=== PATIENT | male | born 1970 | race Caucasian/White ===

== ENCOUNTER 2019-11-16 09:08 | Outpatient (CLI) | payer OTHER, SELFPAY ==
--- NOTE | 2019-11-16 09:48 | US_ITS ---
WS: [id number] BILATERAL DIGITAL DIAGNOSTIC MAMMOGRAM MAMMOGRAPHY WITH CAD CLINICAL INFORMATION: GYNCOMASTIA HYPERTROPHY OF BREAST TECHNIQUE: Bilateral CC, MLO, and ML views. FINDINGS: Scattered fibroglandular densities bilaterally. Palpable marker left breast. Slightly asymmetric fibr oglandular tissue left areola compared to the right. No focal mammographic mass. Ultrasound is pendin g. ULTRASOUND BREAST LEFT TECHNIQUE: Ultrasound left breast focused area of concern. CLINICAL INFORMATION: GYNCOMASTIA HYPERTROPHY OF BREAST COMPARISON: None. FINDINGS: Ultrasound left breast at the nipple. Shadowing fibroglandular tissue deep to the nipple consistent w ith gynecomastia. No focal lesions to target for biopsy. Comparison right nipple is normal in appeara nce. US/US breast BI limited* [id number] IMPRESSION: BI-RADS: 2-Benign FOLLOW UP: See Report Additional management of the palpable abnormality should be based on clinical g rounds.
--- NOTE | 2019-11-16 09:53 | MM_ITS ---
WS: [id number] BILATERAL DIGITAL DIAGNOSTIC MAMMOGRAM MAMMOGRAPHY WITH CAD CLINICAL INFORMATION: GYNCOMASTIA HYPERTROPHY OF BREAST TECHNIQUE: Bilateral CC, MLO, and ML views. FINDINGS: Scattered fibroglandular densities bilaterally. Palpable marker left breast. Slightly asymmetric fibr oglandular tissue left areola compared to the right. No focal mammographic mass. Ultrasound is pendin g. ULTRASOUND BREAST LEFT TECHNIQUE: Ultrasound left breast focused area of concern. CLINICAL INFORMATION: GYNCOMASTIA HYPERTROPHY OF BREAST COMPARISON: None. FINDINGS: Ultrasound left breast at the nipple. Shadowing fibroglandular tissue deep to the nipple consistent w ith gynecomastia. No focal lesions to target for biopsy. Comparison right nipple is normal in appeara [place]ce. MM/[place] [id number] IMPRESSION: BI-RADS: 2-Benign FOLLOW UP: See Report Additional management of the palpable abnormality should be based on clinical g rounds.
== END 2019-11-16 09:09 | disposition home or self-care (01) ==
LOC: RADSHAW 09:11
PROVIDERS: Family Provider Registered Nurse; PCP Registered Nurse; Visit Provider Registered Nurse
DX: N62 Hypertrophy of breast (principal)
CPT/HCPCS: 76642; 77066

== ENCOUNTER → 2019-12-17 15:30 | Outpatient (BNVA) | payer OTHER, SELFPAY | PROVIDERS: Family Provider Registered Nurse; PCP Registered Nurse; Visit Provider Registered Nurse | DX: N62 Hypertrophy of breast (principal) | CPT/HCPCS: 84403 ==

== ENCOUNTER → 2020-02-19 11:34 | Outpatient (BNVA) | payer OTHER, SELFPAY | PROVIDERS: Family Provider Registered Nurse; PCP Registered Nurse; Visit Provider Registered Nurse | DX: E29.1 Testicular hypofunction (principal); I10 Essential (primary) hypertension; F32.9 Major depressive disorder, single episode, unspecified | CPT/HCPCS: 84402; 84403 ==

== ENCOUNTER → 2020-10-28 08:31 | Outpatient (BNVA) | payer OTHER, SELFPAY | PROVIDERS: Family Provider Registered Nurse; PCP Registered Nurse; Visit Provider Registered Nurse | DX: R79.89 Other specified abnormal findings of blood chemistry (principal); I10 Essential (primary) hypertension; F32.9 Major depressive disorder, single episode, unspecified; B35.1 Tinea unguium; F32.89 Other specified depressive episodes | CPT/HCPCS: 80053; 80061; 84402; 84403 ==

== ENCOUNTER → 2020-10-30 08:20 | Outpatient (BNVA) | payer OTHER, SELFPAY | PROVIDERS: Family Provider Registered Nurse; PCP Registered Nurse; Visit Provider Registered Nurse | DX: R73.09 Other abnormal glucose (principal) | CPT/HCPCS: 83036 ==

== ENCOUNTER → 2021-01-16 08:25 | Outpatient (BNVA) | payer OTHER, SELFPAY | PROVIDERS: Family Provider Registered Nurse; PCP Registered Nurse; Visit Provider Registered Nurse | DX: E11.9 Type 2 diabetes mellitus without complications (principal) | CPT/HCPCS: 80053; 80061; 83036; 85025 ==

== ENCOUNTER → 2021-04-06 08:31 | Outpatient (BNVA) | payer OTHER, SELFPAY | PROVIDERS: Family Provider Registered Nurse; PCP Registered Nurse; Visit Provider Registered Nurse | DX: R79.89 Other specified abnormal findings of blood chemistry (principal); F32.89 Other specified depressive episodes; E11.9 Type 2 diabetes mellitus without complications; I10 Essential (primary) hypertension; Z79.899 Other long term (current) drug therapy | CPT/HCPCS: 84402; 84403 ==

== ENCOUNTER → 2021-05-14 09:33 | Outpatient (BNVA) | payer OTHER, SELFPAY | PROVIDERS: Family Provider Registered Nurse; PCP Registered Nurse; Visit Provider Registered Nurse | DX: R79.89 Other specified abnormal findings of blood chemistry (principal) | CPT/HCPCS: 84402; 84403 ==

== ENCOUNTER → 2021-09-11 09:59 | Outpatient (BNVA) | payer OTHER, SELFPAY | PROVIDERS: Family Provider Registered Nurse; PCP Registered Nurse; Visit Provider Registered Nurse | DX: E11.9 Type 2 diabetes mellitus without complications (principal); R79.89 Other specified abnormal findings of blood chemistry | CPT/HCPCS: 80053; 83036; 84402; 84403 ==

== ENCOUNTER → 2022-04-16 08:35 | Outpatient (BNVA) | payer OTHER, SELFPAY | PROVIDERS: Family Provider Registered Nurse; PCP Registered Nurse; Visit Provider Registered Nurse | DX: I10 Essential (primary) hypertension (principal); E11.9 Type 2 diabetes mellitus without complications | CPT/HCPCS: 80053; 80061; 83036 ==

== ENCOUNTER → 2022-09-28 08:52 | Outpatient (BNVA) | payer OTHER, SELFPAY | PROVIDERS: Family Provider Registered Nurse; PCP Registered Nurse; Visit Provider Dermatology | DX: Z01.89 Encounter for other specified special examinations (principal) ==

== ENCOUNTER → 2023-02-28 08:45 | Outpatient (BNVA) | payer OTHER, SELFPAY | PROVIDERS: Family Provider Registered Nurse; PCP Registered Nurse; Visit Provider Registered Nurse | DX: R79.89 Other specified abnormal findings of blood chemistry (principal); E11.9 Type 2 diabetes mellitus without complications | CPT/HCPCS: 83036; 84403 ==

== ENCOUNTER → 2023-08-02 11:57 | Outpatient (BNVA) | payer OTHER, SELFPAY | PROVIDERS: Family Provider Registered Nurse; PCP Registered Nurse; Visit Provider Registered Nurse | DX: E11.9 Type 2 diabetes mellitus without complications (principal); R79.89 Other specified abnormal findings of blood chemistry; I10 Essential (primary) hypertension; F32.89 Other specified depressive episodes; Z12.11 Encounter for screening for malignant neoplasm of colon; M19.012 Primary osteoarthritis, left shoulder | CPT/HCPCS: 80053; 80061; 83036; 84402; 84403; 85025 ==

== ENCOUNTER → 2023-08-16 09:14 | Outpatient (BNVA) | payer OTHER, SELFPAY | PROVIDERS: Family Provider Registered Nurse; PCP Registered Nurse; Visit Provider Registered Nurse | DX: R79.89 Other specified abnormal findings of blood chemistry (principal) | CPT/HCPCS: 84402; 84403 ==

== ENCOUNTER → 2023-10-20 09:14 | Outpatient (BNVA) | payer OTHER, SELFPAY | PROVIDERS: Family Provider Registered Nurse; PCP Registered Nurse; Visit Provider Registered Nurse | DX: E11.9 Type 2 diabetes mellitus without complications (principal); I10 Essential (primary) hypertension; F32.89 Other specified depressive episodes; R79.89 Other specified abnormal findings of blood chemistry | CPT/HCPCS: 83036 ==

== ENCOUNTER → 2024-02-08 08:09 | Outpatient (BNVA) | payer OTHER, SELFPAY | PROVIDERS: Family Provider Registered Nurse; PCP Registered Nurse; Visit Provider Registered Nurse | DX: R79.89 Other specified abnormal findings of blood chemistry (principal); E11.9 Type 2 diabetes mellitus without complications | CPT/HCPCS: 83036; 84403 ==

== ENCOUNTER → 2024-09-20 10:37 | Outpatient (BNVA) | payer OTHER, SELFPAY | PROVIDERS: Family Provider Registered Nurse; PCP Registered Nurse; Visit Provider Registered Nurse | DX: I10 Essential (primary) hypertension (principal); E11.9 Type 2 diabetes mellitus without complications | CPT/HCPCS: 80048; 80061; 83036; 84403; 85025 ==

== ENCOUNTER 2024-09-27 11:30 | Outpatient (CLI) | payer OTHER, SELFPAY ==
--- NOTE | 2024-09-27 | ECG_ITS ---
[facility] 2024-[facility]27 Pat Name: Eamon Garcia Department: Room: Gender: Male [employer] Refinisher: : 1970 Requested By: Bird Navarrete Order Number: [id number] Garcia MD: See Vyas M.D. Interpretive Statements EXERCISE STRESS TEST EXERCISE DATA: The patient was exercised by Uziel protocol. Baseline heart rate was 75 beats per minute. Baseline blood pressure was 145/93 millimeters of mercury. Maximal predicted heart rate was 165 beats per minute. Maximum heart rate achieved was 141 which was 85% of the maximum predicted heart rate. Maximum blood pressure was 190/102 millimeters of mercury. Total exercise time was 7 minutes and 31 seconds. Maximum METs achieved was 10.2. The reason for ending the test was completion of protocol. The patient complained of shortness of breath during the stress test, which then resolved at the end of the test. ELECTROCARDIOGRAM: BASELINE: Showed sinus rhythm, normal axis, no significant ST-T changes at the baseline noted. [] EXERCISE: At the peak exercise level, [] No significant ST-T changes suggestive of ischemia noted. [] RECOVERY: During the recovery period, heart rate dropped appropriately. No significant ST-T changes in the recovery suggestive of ischemia noted. [] CONCLUSION: 1. Exercise capacity is good 2. Heart rate response was appropriate 3. Blood pressure response was appropriate 4. Symptoms not suggestive of ischemia. 5. Stress test not suggestive of ischemia Electronically Signed On 10-07-2024 01:48:21 CDT by See Vyas M.D. [email or web address]
[2024-09-27 11:58] VITALS: BMI 35.5
[2024-09-27 12:49] VITALS: BP 145/89; PULSE 100
== END 2024-09-27 11:31 | disposition home or self-care (01) ==
PROVIDERS: PCP Registered Nurse; Visit Provider Registered Nurse
DX: R00.8 Other abnormalities of heart beat (principal)
CPT/HCPCS: 93017

== ENCOUNTER 2024-11-06 08:47 | Day surgery (SDC) | payer OTHER, SELFPAY ==
--- NOTE | 2024-11-06 08:19 | ANES.PREANE2 ---
Pre-Anesthetic Assessment Height/Weight: Height 1.8 m Preop Diagnosis: screening Operation Date: 11/06/24 10:00 Proposed Procedures p Colonoscopy 37748, G0121, Z12.11(Not Applicable) - Edi Mascorro MD Familial anesthetic complications: none Was Beta Wagner taken within 24 hours: N/A Was Clonidine taken within 24 hours: N/A Last intake: 11/04/24 MEAL 11/06/24 0020 Social Alcohol (social every couple of months.) and No tobacco PREVIOUS SMOKER Exam alert, oriented x 3, clear to auscultation bilaterally and regular rate & rhythm Airway Submandibular: within normal limits Cervical ROM: within normal limits Mallampati: Class II Dentition: full Pulmonary None reported CV/HEM Arrythmia and Hypertension Stress test 2024: 1. Exercise capacity is good 2. Heart rate response was appropriate 3. Blood pressure response was appropriate 4. Symptoms not suggestive of ischemia. 5. Stress test not suggestive of ischemia None reported Hepatic None reported GI Gastroesophageal Reflux Disease Metabolic Diabetes Mellitus (NIDDM) [facility] [place] None reported Neuropsych Depression Anesthetic Plan ASA status: 3 Anesthesia: MAC Medications/Allergies Home Medications ?Medication ?Instructions ?Recorded ?Confirmed ?Last Taken ?Type syringe with needle, safety 3 mL #12 ea 04/16/24 10/31/24 Unknown Rx 22 gauge x 1 1/2 (UltiCare Safety Syringe) citalopram 10 mg tablet See Rx Instructions .Route 09/20/24 11/06/24 11/05/24 Rx .COMPLEX #90 tabs 0 citalopram 20 mg tablet See Rx Instructions .Route 09/20/24 11/06/24 11/05/24 Rx .COMPLEX #90 tabs 0 testosterone cypionate 200 mg/mL 150 mg (0.75 mL) IM .every 2 weeks 09/20/24 10/31/24 11/01/24 Rx intramuscular kit 30 days #1 ea losartan 50 mg tablet 50 mg PO DAILY 10/31/24 11/06/24 11/04/24 History metformin 500 mg tablet 500 mg PO BID 10/31/24 11/06/24 11/04/24 History Allergies Allergy/AdvReac Type Severity Reaction Status Date / Time No Known Allergies Allergy Verified 11/06/24 09:03 [facility] Anesthesia Medical History Low testosterone in male Hypertension Surgical History Hx of appendectomy Family History Grandmother Heart disease Denies family history of Anesthesia complication Bleeding disorder Social History Smoking and tobacco/nicotine status: never used tobacco/nicotine Quit status (tobacco/nicotine): has quit using Year quit tobacco: 2011 -2PPD x 30 Years Second hand smoke exposure: No Alcohol intake: current Alcohol intake frequency: holidays/special occasions only Alcohol type: beer Substance/Drug Use: never Adopted: No Caregiver/support person: Yes Lives independently: Yes Household members: spouse Housing: House Marital status: Highest education level completed: High School Graduate service: Yes status: Discharged branch: [employer] Current occupational status: employed Current occupational exposures/hazards: No Pets and animals: Yes Pets & animals: cat(s), dog(s) and farm animals Leisure activites: hunting and fishing Sexually active: Yes Do you think of yourself as: Straight/Heterosexual Current gender identity: Male Ashlee/Mu-Ism: Church Special ashlee needs: No Agree to transfusion: No Data Anesthesia Cardiac Studies: No Data to Display
[2024-11-06 09:07] VITALS: BP 125/86; PULSE 80; RESP 16; TEMP 37; O2SAT 94; BMI 35.1
[2024-11-06] MEDS: sodium chloride 0.9% 1,000 ML 15 ML IV (09:10)
[2024-11-06 09:13] LABS: Glucose Point of Care 116 mg/dL (70-110)
--- NOTE | 2024-11-06 09:27 | W.PM.OPSUD ---
Surgery/Procedure H&P Update DATE OF PROCEDURE: November 06, 2024 DATE H&P PERFORMED: 10/15/24 H&P UPDATE INFORMATION: I have reviewed H&P completed within last 30 days, I have examined patient prior to procedure and No changes to prior documentation PREOP DIAGNOSIS: screening PLANNED PROCEDURE: Operation Date: 11/06/24 10:00 Proposed Procedures p Colonoscopy 22387, G0121, Z12.11(Not Applicable) - Edi Mascorro MD
[2024-11-06 09:40] VITALS: BP 98/64; PULSE 97; RESP 14; TEMP 36.3; O2SAT 97
[2024-11-06 09:55] VITALS: BP 100/77; PULSE 114; RESP 16; O2SAT 94
--- NOTE | 2024-11-06 10:40 | ANE.PACU2 ---
Inpatient post-anesthesia follow up: Airway intact: Yes Vital signs: Temperature 97.4 F Pulse Rate 114 Respiratory Rate 16 Blood Pressure 100/77 Pulse Oximetry 94 Oxygen Delivery Me thod Room Air Oxygen Flow Rate 5 Fraction of Inspir ed Oxygen Hydration adequate: Yes Nausea and vomiting: No Pain level: 1 Mental status: Baseline
== END 2024-11-06 10:40 | disposition home or self-care (01) ==
PROVIDERS: PCP Registered Nurse; Visit Provider Student in an Organized Health Care Education/Training Program
PROC: 0DJD8ZZ Inspection of Lower Intestinal Tract, Via Natural or Artificial Opening Endoscopic (ICD-10-PCS; CPT 45378; principal; 2024-11-06 10:00)
DX: Z12.11 Encounter for screening for malignant neoplasm of colon (principal); K57.30 Diverticulosis of large intestine without perforation or abscess without bleeding; I10 Essential (primary) hypertension; E11.9 Type 2 diabetes mellitus without complications; K21.9 Gastro-esophageal reflux disease without esophagitis; Z87.891 Personal history of nicotine dependence; Z79.84 Long term (current) use of oral hypoglycemic drugs; Z79.899 Other long term (current) drug therapy; Z79.85 Long-term (current) use of injectable non-insulin antidiabetic drugs
CPT/HCPCS: 36416; 45378; 82962; J2704; J7030

== ENCOUNTER → 2025-02-11 08:34 | Outpatient (BNVA) | payer OTHER, SELFPAY | PROVIDERS: PCP Registered Nurse; Visit Provider Registered Nurse | DX: E11.9 Type 2 diabetes mellitus without complications (principal) | CPT/HCPCS: 83036 ==